=== PATIENT | female | born 1950 | race Caucasian/White ===

== ENCOUNTER → 2016-07-17 | Outpatient (CLI) | payer OTHER, MEDICARE ==
--- NOTE | 2016-07-17 14:54 | MRI ---
HISTORY: Low back pain and right-sided sciatica Study: MRI lumbar spine without contrast Comparison: None Technique: Multiplanar multi-sequence MRI of the lumbar spine was obtained. Sagittal T1, sagittal T 2, and stir weighted images, axial T1, and axial T2 images were obtained. Findings: Imaging of the lumbar spine demonstrates the patient to be status post hemilaminectomy on the left a t the L3 level. There is minimal retrolisthesis of L4 on L5, likely secondary to advanced facet arth ropathy at this level. Vertebral body height is maintained throughout. No acute or chronic compressi on fracture is visualized. Multilevel disc desiccation is noted. There is moderate loss of disc spac e height at the L3-L4 level with associated advanced degenerative endplate change and mild reactive edema. Reactive edema associated with degenerative endplate change is also identified at the L4-L5 l evel. The conus terminates at the L1 level. Evaluation of the pre and paravertebral soft tissues is unremarkable. Very mild ectasia of the infrarenal abdominal aorta is incidentally noted. T12 -- L1: At the T12-L1 level there is mild facet hypertrophy without significant canal stenosis or neuroforaminal compromise. L1 -- L2: At the L1-L2 level there is mild disc ridging as well as facet hypertrophy, resulting in n o significant canal stenosis or neuroforaminal compromise. L2 -- L3: At the L2-L3 level there is facet hypertrophy and ligamentum flavum thickening as well as a mild broad-based disc bulge, resulting in minimal canal stenosis but no significant neuroforaminal compromise. L3 -- L4: At the L3-L4 level there is facet hypertrophy as well as a mild broad-based disc bulge, re sulting in minimal bilateral neuroforaminal compromise but no significant canal stenosis. L4 -- L5: At the L4-L5 level there is a rather large right lateral recess and right paracentral disc protrusion superimposed upon a broad-based disc bulge as well as advanced facet hypertrophy and lig amentum flavum thickening, all resulting in severe neuroforaminal compromise on the right, with disc material filling the neural foramen which is already narrowed by underlying facet arthropathy. Ther e is also moderate to severe canal stenosis as well as moderate neuroforaminal compromise on the lef t. A small annular fissure is also noted at this level. There are also small facet joint effusion an d small synovial cysts posterior to the right facet joint at this level. L5 -- S1: At the L5-S1 level there is a broad-based disc bulge as well as advanced facet hypertrophy and ligamentum flavum thickening, all resulting in moderate canal stenosis as well as mild neurofor aminal compromise on the left and minimal neuroforaminal compromise on the right. An annular fissure is visualized at this level as well. Additionally, there are bilateral facet joint effusions. IMPRESSION: 1. L4-L5 right lateral recess and right paracentral disc herniation superimposed upon a broad-based disc bulge and advanced facet arthropathy, resulting in severe neuroforaminal compromise on the righ t, with complete obliteration of the right neural foramen, as well as moderate to severe canal steno sis and moderate neuroforaminal compromise on the left. 2. Multilevel degenerative disc disease and facet arthropathy, resulting in milder neuroforaminal co mpromise and canal stenoses at the remaining lumbar levels. 3. Annular fissures at the L4-L5 and L5-S1 levels. 4. Status post hemilaminectomy on the left at the L3 level. Reported By:
== END ==
LOC: RAD 13:22
PROVIDERS: ATTEND Specialist
DX: M54.31 Sciatica, right side (principal)
CPT/HCPCS: 72148

== ENCOUNTER 2016-07-31 11:58 | Day surgery (SDC) | payer OTHER, MEDICARE ==
[2016-07-31] MEDS: XYLOCAINE 1 % (PLAIN) ONE ×2 (12:14→12:33)
[2016-07-31] MEDS: MARCAINE 0.25% WITH EPI IJ ONE ×2 (12:15→12:38)
[2016-07-31] MEDS: KENALOG INJ 40 MG ONE ×2 (12:15→12:38)
[2016-07-31 12:47] VITALS: BP 130/65
== END 2016-07-31 12:50 | disposition home or self-care (01) | DRG 552 ==
LOC: SURG1 11:58
PROVIDERS: ATTEND Specialist
PROC: 3E0R3BZ Introduction of Anesthetic Agent into Spinal Canal, Percutaneous Approach (ICD-10-PCS; principal; 2016-07-31 12:45)
PROC: 3E0R33Z Introduction of Anti-inflammatory into Spinal Canal, Percutaneous Approach (ICD-10-PCS; principal; 2016-07-31 12:45)
DX: M54.31 Sciatica, right side (principal)
CPT/HCPCS: 64483; 76000; S0020; J2001; J3301

== ENCOUNTER 2016-10-30 10:24 | Day surgery (SDC) | payer OTHER, MEDICARE ==
[2016-10-30] MEDS ORDERED: KENALOG INJ 40 MG IM ONE (11:17)
[2016-10-30] MEDS ORDERED: MARCAINE 0.25% INJ ONE (11:17)
[2016-10-30 13:08] VITALS: BP 177/74
== END 2016-10-30 11:48 | disposition home or self-care (01) | DRG 552 ==
LOC: SURG1 10:24
PROVIDERS: ATTEND Specialist
PROC: 3E0R33Z Introduction of Anti-inflammatory into Spinal Canal, Percutaneous Approach (ICD-10-PCS; 2016-10-30)
PROC: 3E0R3BZ Introduction of Anesthetic Agent into Spinal Canal, Percutaneous Approach (ICD-10-PCS; principal; 2016-10-30 10:45)
DX: M54.31 Sciatica, right side (principal); M54.16 Radiculopathy, lumbar region
CPT/HCPCS: 62323; 76000; S0020; J3301

== ENCOUNTER 2016-11-13 10:28 | Day surgery (SDC) | payer OTHER, MEDICARE ==
[2016-11-13] MEDS ORDERED: KENALOG INJ 40 MG IM ONE (10:57)
[2016-11-13] MEDS ORDERED: MARCAINE 0.25% INJ ONE (10:58)
--- NOTE | 2016-11-13 11:08 | DR.UPDATE ---
H&P Update History and Physical Update: History and Physical reviewed and patient examined. Changes noted: NO Yes with the following:agree with H&P of Dr Shaw's. will proceed with tfesi L4-5 right. July tfesi with some relief, interlam igor 2 weeks ago minimal relief
[2016-11-13] MEDS: XYLOCAINE 1 % (PLAIN) ONE ×2 (11:20→11:24)
[2016-11-13 11:44] VITALS: BP 188/71
== END 2016-11-13 11:44 | disposition home or self-care (01) | DRG 552 ==
LOC: SURG1 10:28
PROVIDERS: ATTEND Specialist
PROC: 3E0R33Z Introduction of Anti-inflammatory into Spinal Canal, Percutaneous Approach (ICD-10-PCS; 2016-11-13)
PROC: 3E0R3BZ Introduction of Anesthetic Agent into Spinal Canal, Percutaneous Approach (ICD-10-PCS; principal; 2016-11-13 10:45)
DX: M54.31 Sciatica, right side (principal); M47.22 Other spondylosis with radiculopathy, cervical region
CPT/HCPCS: 64483; 76000; S0020; J2001; J3301